=== PATIENT | female | born 1995 | race Caucasian/White ===

== ENCOUNTER → 2021-03-23 09:00 | Outpatient (CLI) | payer OTHER | END | disposition home or self-care (01) | LOC: PPH VACUNA 09:00 | PROVIDERS: ATTEND Emergency Medicine Pediatric Emergency Medicine | DX: Z23 Encounter for immunization (principal) ==

== ENCOUNTER 2021-05-26 08:30 | Outpatient (CLI) | payer OTHER | END 2021-05-26 09:00 | disposition home or self-care (01) | LOC: PPH VACUNA 08:30 | PROVIDERS: ATTEND Emergency Medicine Pediatric Emergency Medicine | DX: Z23 Encounter for immunization (principal) ==

== ENCOUNTER 2022-04-03 15:00 | Outpatient (CLI) | payer OTHER | END 2022-04-03 15:15 | disposition home or self-care (01) | LOC: PPH VACUNA 15:00 | PROVIDERS: ATTEND Emergency Medicine Pediatric Emergency Medicine | DX: Z23 Encounter for immunization (principal) ==

== ENCOUNTER 2022-09-26 06:20 | Outpatient (CLI) | payer OTHER | END 2022-09-26 06:21 | disposition home or self-care (01) | LOC: LAB 06:20 | DX: E03.9 Hypothyroidism, unspecified (principal); Q03.8 Other congenital hydrocephalus; Z98.2 Presence of cerebrospinal fluid drainage device; E55.9 Vitamin D deficiency, unspecified ==

== ENCOUNTER 2022-11-23 08:42 | Outpatient (CLI) | payer OTHER | END 2022-11-23 08:43 | disposition home or self-care (01) | LOC: LAB 08:42 | DX: N17.9 Acute kidney failure, unspecified (principal) ==

== ENCOUNTER → 2022-11-27 | Outpatient (CLI) | payer OTHER | END | disposition home or self-care (01) | LOC: MRI 08:41 | PROVIDERS: ATTEND Neurological Surgery | DX: N92.0 Excessive and frequent menstruation with regular cycle (principal); D49.6 Neoplasm of unspecified behavior of brain; M47.812 Spondylosis without myelopathy or radiculopathy, cervical region; M47.814 Spondylosis without myelopathy or radiculopathy, thoracic region; M41.25 Other idiopathic scoliosis, thoracolumbar region; M62.830 Muscle spasm of back | CPT/HCPCS: 70552 ==

== ENCOUNTER → 2022-12-19 | Outpatient (CLI) | payer OTHER | END | disposition home or self-care (01) | LOC: TOM 12:15 | PROVIDERS: ATTEND Otolaryngology Otology & Neurotology | DX: J32.4 Chronic pansinusitis (principal) ==

== ENCOUNTER → 2023-07-19 | Outpatient (CLI) | payer OTHER ==
[2023-07-19 08:12] LABS: PH,URINE 6.5 (5.0-8.0); URINE APPEARANCE Clear; URINE BILIRRUBIN Negative (NEGATIVE); URINE BLOOD Negative; URINE COLOR Yellow; URINE GLUCOSE Negative (NEGATIVE); URINE LEUKOCYTE Small; URINE NITRATE Negative; URINE PROTEIN Negative (NEGATIVE); URINE UROBILINOGEN 0.2 E.U./dl
[2023-07-19 08:15] LABS: URINE BACTERIA 284.7 uL (0.0-1933); URINE EPITHELIAL CELLS 18.3 uL (0.0-38.8); URINE RBC 7.6 uL (0.0-20.8); URINE WBC 27.6 uL (0.0-23.2)
[2023-07-19 08:19] LABS: HEMATOCRIT 37.8 % (36.0-45.00); HEMOGLOBIN 12.9 g/dL (12.0-15.00); MEAN CELL VOLUME 82.6 fL (80.00-100.00); MEAN CORPUSCULAR HEMOGLOBIN 28.1 pg (27.00-32.0); PLATELET COUNT 172 K/uL (150-450); RED BLOOD COUNT 4.57 M/uL (4.00-6.00); RED CELL DISTRIBUTION WIDTH 13.5 % (11.5-14.5)
[2023-07-19 09:49] LABS: ALBUMIN 3.8 gm/dL (3.4-5.0); BILIRUBIN TOTAL 0.55 mg/dL (0.3-1.2); CALCIUM 8.8 mg/dL (8.5-10.1); CHOL HDL RATIO 2.7 (0-5.0); CREATININE SERUM 0.72 mg/dL (0.55-1.02); GFR 95.11; GLOBULINA 2.8 G/DL (2.4-3.5); POTASSIUM 3.92 mEq/L (3.5-5.1); TOTAL PROTEIN 6.6 gm/dL (6.4-8.2); TSH 2.38 uIU/mL (0.358-3.74)
== END | disposition home or self-care (01) ==
LOC: LAB 07:23
DX: J45.20 Mild intermittent asthma, uncomplicated (principal); E78.2 Mixed hyperlipidemia; I10 Essential (primary) hypertension; E03.9 Hypothyroidism, unspecified; E55.9 Vitamin D deficiency, unspecified

== ENCOUNTER 2024-02-18 09:00 | Outpatient (CLI) | payer OTHER | END 2024-02-18 10:00 | disposition home or self-care (01) | LOC: PPH VACUNA 09:00 | PROVIDERS: ATTEND Emergency Medicine Pediatric Emergency Medicine | DX: Z23 Encounter for immunization (principal) ==

== ENCOUNTER → 2024-11-04 06:55 | Outpatient (CLI) | payer OTHER ==
[2024-11-04 14:40] LABS: PH,URINE 6.5 (5.0-8.0); URINE APPEARANCE Clear; URINE BILIRRUBIN Negative (NEGATIVE); URINE BLOOD Moderate; URINE COLOR Yellow; URINE GLUCOSE Negative (NEGATIVE); URINE KETONE Negative (NEGATIVE); URINE LEUKOCYTE Trace; URINE NITRATE Negative; URINE PROTEIN Negative (NEGATIVE); URINE UROBILINOGEN 0.2 E.U./dl
[2024-11-04 14:42] LABS: BASO % 0.6 % (0.1-1.2); EOS # 0.17 (0.04-0.54); EOS % 2.5 % (0.7-7.0); HEMATOCRIT 39.1 % (34.1-44.9); LYMPH # 1.69 (1.18-3.74); LYMPH % 24.6 % (19.3-53.1); MEAN CORPUSCULAR HEMOGLOBIN 27.7 pg (25.6-32.2); MONO # 0.49 (0.24-0.82); MONO % 7.1 % (4.7-12.5); NEUT # 4.47 (1.56-6.13); NEUT % 64.9 % (34.0-71.1); PLATELET COUNT 198 K/uL (163-369); RED BLOOD COUNT 4.69 M/uL (3.93-5.22); RED CELL DISTRIBUTION WIDTH 13.3 % (11.6-14.4)
[2024-11-04 14:44] LABS: URINE BACTERIA 281.3 uL (0.0-1933); URINE RBC 13.8 uL (0.0-20.8); URINE WBC 4.7 uL (0.0-23.2)
[2024-11-04 15:19] LABS: ALBUMIN 4.1 gm/dL (3.4-5.0); BILIRUBIN TOTAL 0.53 mg/dL (0.3-1.2); CALCIUM 9.2 mg/dL (8.5-10.1); CHOL HDL RATIO 2.4 (0-5.0); CREATININE SERUM 0.75 mg/dL (0.55-1.02); GFR 90.13; GLOBULINA 2.8 G/DL (2.4-3.5); POTASSIUM 4.19 mEq/L (3.5-5.1); TOTAL PROTEIN 6.9 gm/dL (6.4-8.2); TSH 1.95 uIU/mL (0.358-3.74)
== END | disposition home or self-care (01) ==
LOC: LAB 06:55
DX: J45.20 Mild intermittent asthma, uncomplicated (principal); I10 Essential (primary) hypertension; E03.9 Hypothyroidism, unspecified; E55.9 Vitamin D deficiency, unspecified

== ENCOUNTER 2024-11-30 10:43 | Outpatient (CLI) | payer OTHER ==
[2024-11-30 12:46] LABS: BUN CREA RATIO 18.0 (7.0-25.0); CREATININE SERUM 0.57 mg/dL (0.55-1.02); GFR 123.71; GLUCOSE FASTING 83.0 mg/dL (65-100); OSMOLALITY SERUM 283.0 MOSM/KG (275-295)
== END 2024-11-30 10:47 | disposition home or self-care (01) ==
LOC: LAB 10:43
PROVIDERS: ATTEND Internal Medicine
DX: Z00.00 Encounter for general adult medical examination without abnormal findings (principal)

== ENCOUNTER 2024-12-02 09:03 | Emergency (ER) | payer OTHER ==
[~2024-12-02] VITALS: Ht 160 cm; Wt 49.9 kg
[2024-12-02 11:05] LABS: BASO % 0.3 % (0.1-1.2); EOS # 0.01 (0.04-0.54); EOS % 0.1 % (0.7-7.0); LYMPH # 0.48 (1.18-3.74); LYMPH % 4.6 % (19.3-53.1); MEAN PLATELET VOLUME 12.30 fl (9.4-12.4); MONO # 0.19 (0.24-0.82); MONO % 1.8 % (4.7-12.5); NEUT # 9.72 (1.56-6.13); NEUT % 92.9 % (34.0-71.1); RED CELL DISTRIBUTION WIDTH 13.2 % (11.6-14.4)
[2024-12-02 11:31] LABS: COVID-19 AG POSITIVE (NEGATIVE)
[2024-12-02] MEDS ORDERED: PAXLOVID 300-11 EAC1 PO (12:24)
[2024-12-02] MEDS ORDERED: GILTUSS COUGH-118 M1 PO (12:24)
[2024-12-02] MEDS ORDERED: ACETAMINOPHEN500 M1 PO (12:24)
[2024-12-02 13:52] VITALS: BP 103/67; O2SAT 98
== END 2024-12-02 13:53 | disposition home or self-care (01) ==
LOC: ER 09:03
PROVIDERS: Preventive Medicine Public Health & General Preventive Medicine
DX: U07.1 COVID-19 (principal); J00 Acute nasopharyngitis [common cold]; Z91.018 Allergy to other foods; Z91.040 Latex allergy status

== ENCOUNTER 2024-12-02 09:47 | Outpatient (CLI) | payer OTHER ==
[2024-12-02] MEDS ORDERED: ACETAMINOPHEN500 M1 PO (12:24)
[2024-12-02] MEDS ORDERED: PAXLOVID 300-11 EAC1 PO (12:24)
[2024-12-02] MEDS ORDERED: GILTUSS COUGH-118 M1 PO (12:24)
== END 2024-12-02 09:49 | disposition home or self-care (01) ==
LOC: MRI 09:47
PROVIDERS: ATTEND Neurological Surgery
DX: D49.6 Neoplasm of unspecified behavior of brain (principal); G91.0 Communicating hydrocephalus
CPT/HCPCS: 70553

== ENCOUNTER 2025-03-04 15:00 | Outpatient (CLI) | payer OTHER ==
[~2025-03-04 15:00] MED LIST: ACETAMINOPHEN500 M1 PO; GILTUSS COUGH-118 M1 PO; PAXLOVID 300-11 EAC1 PO
== END 2025-03-04 15:10 | disposition home or self-care (01) ==
LOC: PPH VACUNA 15:00
PROVIDERS: ATTEND Emergency Medicine Pediatric Emergency Medicine
DX: Z23 Encounter for immunization (principal)